=== PATIENT | female | born 1960 | race Caucasian/White ===

== ENCOUNTER → 2016-11-03 | Outpatient (CLI) | payer OTHER ==
[~2016-11-03] MED LIST: ANTIVERT PO; PHENERGAN25 MG PO; PRILOSEC20 MG PO; TYLENOL #3 PO
--- NOTE | ~2016-11-03 | MY11 ---
[facility] A Service of [facility] & [facility] RADIOLOGY TEXT RESULTS PATIENT: HERIBERTO CRUZ LOCATION: [facility] : 60 UNIT #: [id number] AGE: [address]: JESICA HOANG MD SEX: F ORDER DR: [id number] [address] [address] [id number] O MR#: [id number] Acc #: [id number] NAME: HERIBERTO CRUZ : 1960 SEX: F STUDY DATE/TIME: 11/03/2016 9:42 UNIT: [facility] ROOM: STUDY DESCRIPTION: MY Mammogram Screening Dig John Attending Physician: Og Hoang M.D. Referring Physician: Og Hoang M.D. Ordering Physician: Og Hoang M.D. Primary Care Physician: Og Hoang M.D. MEDICAL IMAGING REPORT This report is preliminary unless electronic signature is present. REVISED REPORT SEE ADDENDUM EXAM Bilateral digital screening mammogram with CAD, 11/03/2016 INDICATION 56-year-old female for routine screening. No reported problems and no personal history of breast cancer. Family history positive in a maternal grandmother in her 50s. No surgeries. Upon further questioning, the patient indicates "burning" sensation in the right breast for a month. She denies a palpable abnormality. TECHNIQUE CC and MLO views of the breasts were obtained and reviewed with an FDA-approved CAD device. COMPARISON 02/26/2015, 04/10/2011, 11/22/2009 FINDINGS An exaggerated CC lateral view on the right was also performed. Breast parenchyma is composed of scattered fibroglandular densities. The pattern is unchanged. There is no new dominant nodule, mass or suspicious cluster of microcalcifications. Asymmetric fibroglandular tissue in the posterior upper outer right breast is unchanged. Benign calcifications are present. IMPRESSION Benign screening mammogram. 1 year followup recommended. Patients over the age of 40 are entered into a reminder system with target due date for the next mammogram. A result letter will also be sent to the patient. [facility] A Service of [facility] RADIOLOGY TEXT RESULTS PATIENT: HERIBERTO CRUZ LOCATION: [facility] : 60 UNIT #: [id number] AGE: [address]: JESICA HOANG MD SEX: F ORDER DR: BIRADS: 2 Benign Finding Dictated by... Pedrito Sheppard M.D. THIS IS AN ELECTRONICALLY VERIFIED REPORT Pedrito Sheppard M.D. at 11/03/2016 5:20 PM Vianca TD: 11/03/2016 11:05 JOB #: [id number] ADDENDUM If the patient's pain symptoms on the right persist or a new palpable abnormality develops, this could be further assessed with a targeted right breast ultrasound. Dictated by... Pedrito Sheppard M.D. THIS IS AN ELECTRONICALLY VERIFIED REPORT Pedrito Sheppard M.D. at 11/06/2016 7:30 AM Amanda TD: 11/03/2016 11:16 JOB #: [id number] CC: Leona/tracy Please Delete MEDICAL IMAGING REPORT Page 1 of 1
== END | disposition home or self-care (01) ==
LOC: SMAM 08:37
DX: Z12.31 Encounter for screening mammogram for malignant neoplasm of breast (principal); Z80.3 Family history of malignant neoplasm of breast
CPT/HCPCS: G0202